=== PATIENT | male | born 1975 | race Two or more races ===

== ENCOUNTER 2020-08-24 10:08 | Outpatient (REF) | payer OTHER, SELFPAY | END 2020-08-24 10:09 | disposition home or self-care (01) | LOC: HO.LAB 10:08 | PROVIDERS: PCP Internal Medicine; Visit Provider Internal Medicine | DX: Z20.828 Contact with and (suspected) exposure to other viral communicable diseases (principal) | CPT/HCPCS: C9803; U0003 ==

== ENCOUNTER 2020-09-10 16:21 | Outpatient (REF) | payer OTHER, SELFPAY | END 2020-09-10 16:22 | disposition home or self-care (01) | LOC: HO.LAB 16:21 | PROVIDERS: PCP Internal Medicine; Visit Provider Internal Medicine | DX: Z20.822 Contact with and (suspected) exposure to COVID-19 (principal) | CPT/HCPCS: 36415; C9803; U0003 ==

== ENCOUNTER 2020-09-21 10:21 | Outpatient (REF) | payer OTHER, SELFPAY | END 2020-09-21 10:22 | disposition home or self-care (01) | LOC: HO.LAB 10:21 | PROVIDERS: Visit Provider Internal Medicine | DX: Z20.822 Contact with and (suspected) exposure to COVID-19 (principal) | CPT/HCPCS: 36415; C9803; U0003 ==

== ENCOUNTER 2021-01-06 20:22 | Emergency (ER) | payer OTHER, SELFPAY ==
[2021-01-06 20:40] VITALS: BP 135/91; BP 190/130; PULSE 121; PULSE 132; RESP 16; TEMP 37.1; O2SAT 96; O2SAT 98; BMI 34.8
--- NOTE | 2021-01-06 21:22 | MHC.RECOVSUP ---
? Reason for consult support o Current location: ED11 o Identified substance use concern: Heroin - Overdose - Support ? Intervention: o Community resources provided o Harm reduction discussion ? Plan: o Patient to follow up with HF after discharge ? Additional information: Patient looking for support.. I supplied Patient with [facility] Information... Stated he will be there tomorrow
--- NOTE | 2021-01-06 21:44 | ED_ITS ---
HPI - General Adult General Chief complaint: General Medical Stated complaint: HIGH BLOOD PRESSURE Time Seen by Provider: 01/06/21 21:13 Source: patient Mode of arrival: ambulatory History of Present Illness HPI narrative: 45-year-old male who is brought in via EMS after they were called by his spouse after an argument at which time the spouse states that the patient was acting agitated. Patient states that he was told his blood pressure was very high and that he needed to come in to be further evaluated and agreed at that time. Currently, patient does not wish to stay he has an appointment for add care who should be calling him tomorrow and denies any recent alcohol or drug use. He denies any headache, dizziness, blurry vision, shortness of breath, chest pain/palpitations, GI symptoms, or symptoms. When it was explained to him the plan for labs and urine he is declining at this time as well as declining any suicidal or homicidal ideation and also denies hearing voices. Related Data Allergies Allergy/AdvReac Type Severity Reaction Status Date / Time No Known Allergies Allergy Verified 01/06/21 20:49 Review of Systems Review of Systems: Pertinent positives and negatives as stated in HPI 10 point review of systems otherwise negative. PMFSH Past Medical History Source: nursing notes reviewed Medical History Hypertension Substance abuse Social History Social History Advance Directives: No Advance Directives Information Provided: Yes Physical Exam Vital Signs: Vital Signs: Last Vital Signs Temp 98.7 F 01/06/21 20:40 Pulse 121 H 01/06/21 20:40 Resp 16 01/06/21 20:40 BP 135/91 H 01/06/21 20:40 Pulse Ox 96 01/06/21 20:40 Body Mass Index 34.8 VITAL SIGNS: Reviewed. GENERAL: Well developed, well nourished, in no acute distress. HEAD: Normocephalic/atraumatic EYES: PERRLA, EOMI intact without pain, no nystagmus EARS: Ext canals without abnormality NOSE: Nares patent bilateral OROPHARYNX: no oral lesions noted, posterior pharynx clear NECK: Supple, no adenopathy LUNGS: Normal breath sounds. No adventitious sounds or accessory muscle use. SpO2<96> CARDIOVASCULAR: Regular rate and rhythm without noted murmurs ABDOMEN: Soft, non-tender, non-distended with bowel sounds. NEUROLOGIC: Alert and oriented x 4. Course Course Course Narrative: 45-year-old male with history and clinical presentation consistent with asymptomatic hypertension with known underlying high blood pressure but denies taking any medications for this condition. In addition, patient appears to be an command of full faculties but is clearly agitated with significant other. The refinery operator light ends recovery spoke with the patient and the plan is that he will follow up with [facility] when they call him tomorrow. Patient is asking to sign out against medical advice and all the risks and benefits were discussed with him at bedside. He was offered a director river restoration but he declined. Discharge Plan Discharge Clinical Impression: Hypertension Patient Disposition: Left Against Medical Advice Instructions: DASH Eating Plan (ED), Hypertension (ED) Additional Instructions: Return to the emergency room for any acute worsening of your symptoms or if we can offer any other assistance and your attempts to enter detox. Referrals: Tod La MD [Primary Care Provider] - 2 days Stand Alone Forms: Against Medical Advice
== END 2021-01-06 22:00 | disposition left against medical advice (07) ==
PROVIDERS: Emergency Provider Student in an Organized Health Care Education/Training Program; PCP Internal Medicine
DX: I10 Essential (primary) hypertension (principal); R45.1 Restlessness and agitation; F11.10 Opioid abuse, uncomplicated; F17.200 Nicotine dependence, unspecified, uncomplicated
CPT/HCPCS: 99282; 99283

== ENCOUNTER 2021-01-07 00:53 | Emergency (ER) | payer OTHER, SELFPAY ==
[2021-01-07 00:59] VITALS: BP 138/89; BP 140/90; PULSE 122; RESP 20; TEMP 37.3; O2SAT 97; BMI 33.5
[2021-01-07 02:04] VITALS: BP 112/60; PULSE 97; RESP 16; O2SAT 95
--- NOTE | 2021-01-07 02:28 | ED_ITS ---
HPI - Overdose General Chief Complaint: Overdose Stated Complaint: od Time Seen by Provider: 01/07/21 02:28 Source: patient Mode of arrival: EMS History of Present Illness HPI Narrative: 45-year-old male who was seen earlier in the day now is brought in by EMS for accidental overdose of heroin, he states he used 2 bags. And states he has been continuing to argue with his but denies any suicidal or homicidal ideation or AVH. He is scheduled to hear back from [facility] today for detox and has no other acute complaints. Related Data Allergies Allergy/AdvReac Type Severity Reaction Status Date / Time No Known Allergies Allergy Verified 01/07/21 01:08 Review of Systems Review of Systems: Pertinent positives and negatives as stated in HPI 10 point review of systems is otherwise negative. PMFSH Past Medical History Source: nursing notes reviewed Medical History Hypertension Substance abuse Social History Social History Advance Directives: No Advance Directives Information Provided: No Physical Exam Vital Signs: Vital Signs: Last Vital Signs Temp 99.1 F 01/07/21 00:59 Pulse 122 H 01/07/21 00:59 Resp 20 01/07/21 00:59 BP 138/89 01/07/21 00:59 Pulse Ox 97 01/07/21 00:59 Body Mass Index 33.5 VITAL SIGNS: Reviewed. GENERAL: Well developed, well nourished, in no acute distress. HEAD: Normocephalic/atraumatic EYES: PERRLA, EOMI OROPHARYNX: no oral lesions noted, posterior pharynx clear NECK: Supple, no adenopathy LUNGS: Normal breath sounds. No adventitious sounds or accessory muscle use. SpO2<97> CARDIOVASCULAR: Regular rate and rhythm without noted murmurs ABDOMEN: Soft, non-tender, non-distended with bowel sounds. NEUROLOGIC: Alert and oriented x 4. Course Course Course Narrative: 45-year-old male with history and clinical presentation consistent with accidental overdose and received Narcan. Patient is awake and tolerating oral intake without difficulty and is otherwise stable for discharge. Patient has plan to follow with [facility] in the morning. Discharge Plan Discharge Clinical Impression: Overdose Patient Disposition: Home, Self-Care Instructions: Adult Overdose (ED) Additional Instructions: Return to the emergency department for any acute worsening of symptoms. Referrals: Physician,Unknown [Primary Care Provider] - 2 days Print Language: Romansh
[2021-01-07 04:00] VITALS: BP 107/48; PULSE 94; RESP 16; O2SAT 96
[2021-01-07] MEDS: Naloxone HCl Nasal TAKE HOME 4 MG SPRAY NOSTRILALT (04:04)
--- NOTE | 2021-01-07 04:04 | PC.NURSE ---
Narcan ordered to be taken home with patient. Narcan not actually administered while in ED.
== END 2021-01-07 04:19 | disposition home or self-care (01) ==
PROVIDERS: Emergency Provider Student in an Organized Health Care Education/Training Program
DX: T40.1X1A Poisoning by heroin, accidental (unintentional), initial encounter (principal); Y92.9 Unspecified place or not applicable; F11.10 Opioid abuse, uncomplicated; Z71.51 Drug abuse counseling and surveillance of drug abuser
CPT/HCPCS: 99284

== ENCOUNTER 2021-01-09 21:00 | Emergency (ER) | payer OTHER, SELFPAY ==
[2021-01-09 21:12] VITALS: BP 126/89; PULSE 120; RESP 18; TEMP 37; O2SAT 100; BMI 37.1
--- NOTE | 2021-01-09 22:08 | ED_ITS ---
HPI - Overdose General Chief Complaint: ETOH/Substance Use Stated Complaint: OD Time Seen by Provider: 01/09/21 21:06 Source: patient and EMS Mode of arrival: EMS Limitations: no limitations History of Present Illness HPI Narrative: Patient comes emergency room for heroin overdose. Earlier this afternoon, patient used 2 bags of heroin. Patient was at home, his found him unconscious, called EMS. By the time EMS arrived, the patient woke up by himself, no Narcan was given. Patient is awake and alert, states he does not remember exactly what happened, states it was an accident, denies suicidal or homicidal ideation. Otherwise feels well. Denies chest pain or shortness of breath. complaint: accidental overdose Related Data Allergies Allergy/AdvReac Type Severity Reaction Status Date / Time No Known Allergies Allergy Verified 01/07/21 01:08 Review of Systems Review of Systems: Constitutional : No Weight loss, No Fever, No Chills, No Night Sweats, No Fatigue, No Malaise ENT/Mouth : No Hearing loss, No Ear Pain, No Nasal Congestion, No Sinus Pain, No Hoarseness, No sore throat, No Rhinorrhea, No Swallowing Difficulty Eyes: No Eye Pain, No Swelling, No Redness, No Foreign Body, No Discharge, No Vision Changes Cardiovascular : No Chest Pain, No SOB, No Dyspnea on Exertion, No Orthopnea, No Edema, No Palpitations Respiratory : No Cough, No Sputum, No Wheezing, No Smoke Exposure, No Dyspnea Gastrointestinal : No Nausea, No Vomiting, No Diarrhea, No Constipation, No abdominal Pain, No Hematochezia, No Melena Genitourinary : no irregular bleeding, No Dysuria, No Urinary Frequency, No Hematuria, No Urinary Incontinence, No Urgency, No Flank Pain, No Urinary Flow Changes, No Hesitancy Musculoskeletal : No joint pain, No Myalgias, No Joint Swelling Skin : No Skin Lesions, No rash Neuro : No Weakness, No Numbness, No Paresthesias, No Loss of Consciousness, No Dizziness, No Headache Psych : No Anxiety/Panic, No Depression, No SI/HI/AH/VH, accidental overdose Heme/Lymph: No Bruising, No Bleeding,No Lymphadenopathy Endocrine : No Polyuria, No Polydipsia, No Temperature Intolerance PMF Past Medical History Medical History Hypertension Substance abuse Social History Social History Advance Directives: No Advance Directives Information Provided: Yes Physical Exam Vital Signs: Vital Signs: Last Vital Signs Temp 98.6 F 01/09/21 21:12 Pulse 120 H 01/09/21 21:12 Resp 18 01/09/21 21:12 BP 126/89 01/09/21 21:12 Pulse Ox 100 01/09/21 21:12 Body Mass Index 37.1 Appearance: Alert. Oriented X3. No acute distress. Eyes: Pupils equal, round and reactive to light. ENT: Pharynx normal. Neck: Normal inspection. Neck supple. No lymph nodes noted. No crepitus CVS: Normal heart rate and rhythm. Pulses normal. Normal S1 and S2 Respiratory: No respiratory distress. Breath sounds normal. No Wheezing. No ra les Abdomen: Soft and nontender. No rigidity. No distention. good BS x4 Skin: Skin warm and dry. Normal skin color. Normal skin turgor. Extremities: No lower extremity edema. No lower extremity edema. No Lacerations. No Rash Neuro: Oriented X 3. No motor deficit. No sensory deficit. Moving all extermities. No slurred speech. Course Course Course Narrative: Patient has been in the emergency for over an hour, awake, alert, calm a comparative. Oxygen saturation 100% on room air. Patient feeling well, ambulatory with steady gait, tolerating p.o. Patient was provided with home Narcan Discharge Plan Discharge Clinical Impression: Accidental overdose Qualifiers: Encounter type: initial encounter Qualified Code(s): T50.901A - Poisoning by unspecified drugs, medicaments and biological substances, accidental (unintentional), initial encounter Patient Disposition: Home, Self-Care Instructions: Adult Overdose (ED) Additional Instructions: Please stop using drugs. Please follow-up with your primary care physician tomorrow. If you have any worsening or new symptoms, please return to the emergency room or call 911
[2021-01-09] MEDS: Naloxone HCl Nasal TAKE HOME 4 MG SPRAY NOSTRILALT (22:17)
== END 2021-01-09 22:18 | disposition home or self-care (01) ==
PROVIDERS: Emergency Provider Emergency Medicine
DX: T40.1X1A Poisoning by heroin, accidental (unintentional), initial encounter (principal); Y92.9 Unspecified place or not applicable; F11.10 Opioid abuse, uncomplicated; Z71.51 Drug abuse counseling and surveillance of drug abuser
CPT/HCPCS: 99283

== ENCOUNTER 2021-01-10 01:24 | Emergency (ER) | payer OTHER, SELFPAY ==
[2021-01-10 01:28] VITALS: PULSE 130; RESP 20; TEMP 37.2; O2SAT 96; BMI 31.5
[2021-01-10 01:40] VITALS: BP 121/77; PULSE 125; RESP 18; TEMP 37.2; O2SAT 97
--- NOTE | 2021-01-10 02:11 | ED_ITS ---
HPI - Overdose General Chief Complaint: ETOH/Substance Use Stated Complaint: Overdose Time Seen by Provider: 01/10/21 02:10 Source: patient Mode of arrival: EMS History of Present Illness HPI Narrative: 45-year-old male states that he went home after being discharged from here got into a ?huge argument with his ? which he states caused him to snort more heroin. His called his daughter who then called EMS who came and picked him up, he did not receive Narcan in route. At this time, patient denies any other complaints such as shortness of breath or chest pain/palpitations. Related Data Allergies Allergy/AdvReac Type Severity Reaction Status Date / Time No Known Allergies Allergy Verified 01/07/21 01:08 Review of Systems Review of Systems: Pertinent positives and negatives as stated in HPI 10 point review of systems is otherwise negative. PMFSH Past Medical History Source: nursing notes reviewed Medical History Hypertension Substance abuse Social History Social History Alcohol intake: current Alcohol intake frequency: 3 or more drinks per day Smoking Status: Current every day smoker Smoked in Last 30 Days: Yes Use of substances other than those prescribed or required for medical reasons: Yes Substance Use Type: Heroin and Opiates Advance Directives: No Advance Directives Information Provided: No Physical Exam Vital Signs: Vital Signs: Last Vital Signs Temp 99.0 F 01/10/21 01:40 Pulse 100 01/10/21 04:00 Resp 16 01/10/21 04:00 BP 121/77 01/10/21 01:40 Pulse Ox 96 01/10/21 04:00 Body Mass Index 31.5 VITAL SIGNS: Reviewed. GENERAL: Well developed, well nourished, in no acute distress. HEAD: Normocephalic/atraumatic EYES: PERRLA, EOMI OROPHARYNX: no oral lesions noted, posterior pharynx clear NECK: Supple, no adenopathy LUNGS: Normal breath sounds. No adventitious sounds or accessory muscle use. SpO2<97> CARDIOVASCULAR: Regular rate and rhythm without noted murmurs ABDOMEN: Soft, non-tender, non-distended with bowel sounds. NEUROLOGIC: Alert and oriented x 4. Course Course Course Narrative: 45-year-old male with history and clinical presentation consistent with significant social stressors regarding his substance dependence between he and has . Patient states that he has an intake appointment today, Sunday, for detox. Patient stable for discharge to home with instructions to continue [facility] with [facility]. Patient tolerating oral intake and is observed to have a steady gait. Who be discharged in stable condition to home and to follow up with his detox program. Reevaluation(s) Reevaluation #1: Patient placed in physician observation because the patient needed more time to sober. At the time observation was started the patient's vital signs were stable, patient is alert and oriented, neuro: Nonfocal, CV RRR, lungs clear Time: 04:15 Reevaluation #2: Physician observation ended. Patient discharged and the plan is to follow-up with detox this morning. NAD, lungs clear, CV RRR, abdominal nontender, neuro intact. Disposition is for home Time: 05:50 Discharge Plan Discharge Clinical Impression: Substance abuse or dependence Patient Disposition: Home, Self-Care Instructions: Polysubstance Abuse (ED) Additional Instructions: Return to the emergency room for any acute worsening of symptoms. Referrals: Physician,Unknown [Primary Care Provider] - 2 days
[2021-01-10 04:00] VITALS: PULSE 100; RESP 16; O2SAT 96
[2021-01-10 04:03] VITALS: PULSE 100
--- NOTE | 2021-01-10 05:39 | PC.NURSE ---
PATIENT IS ALERT AND OREINTED, AMBULATING TO RESTROOM STEADILY WITH NO DISTRESS NOTED. PLAN OF CARE FOR DISCHARGE HOME.
== END 2021-01-10 06:11 | disposition home or self-care (01) ==
PROVIDERS: Emergency Provider Student in an Organized Health Care Education/Training Program
DX: T40.1X4A Poisoning by heroin, undetermined, initial encounter (principal); T40.1X1A Poisoning by heroin, accidental (unintentional), initial encounter; F11.10 Opioid abuse, uncomplicated; Y92.9 Unspecified place or not applicable; F17.200 Nicotine dependence, unspecified, uncomplicated; Z71.6 Tobacco abuse counseling; Z71.51 Drug abuse counseling and surveillance of drug abuser
CPT/HCPCS: 99285

== ENCOUNTER 2021-01-15 17:55 | Emergency (ER) | payer OTHER, SELFPAY ==
[2021-01-15 18:09] VITALS: BP 132/74; BP 139/81; PULSE 124; PULSE 72; RESP 16; TEMP 36.6; O2SAT 97; BMI 33.5
--- NOTE | 2021-01-15 18:20 | ED.OVERDOSE ---
HPI - Overdose General Chief Complaint: ETOH/Substance Use Stated Complaint: overdose Time Seen by Provider: 01/15/21 18:20 Source: patient and EMS Mode of arrival: EMS Limitations: no limitations History of Present Illness HPI Narrative: 45-year-old male came in for evaluation for heroin overdose. 45-year-old male found by bystander in his car unresponsive, patient needed 2 mg of intranasal Narcan by EMS, patient stated that he used only 1 bag of heroin by sniffing, patient declined any intention self-harm or others harm, no hallucination. Patient now is awake and alert in the emergency department. Related Data Allergies Allergy/AdvReac Type Severity Reaction Status Date / Time No Known Allergies Allergy Verified 01/07/21 01:08 Review of Systems Review of Systems: All other systems are reviewed and are negative Constitutional: Reports as per HPI and Reports no additional constitutional complaints Eyes: Reports as per HPI and Reports no additional eye complaints Reports system reviewed and no additional complaints, except as documented Cardiovascular: Reports as per HPI and Reports no additional cardiovascular complaints Respiratory: Reports as per HPI and Reports no additional respiratory complaints Gastrointestinal: Reports as per HPI and Reports no additional gastrointestinal complaints Genitourinary: Reports no additional female genitourinary complaints Musculoskeletal: Reports no additional musculoskeletal complaints Skin/Breast: Reports system reviewed and no additional complaints, except as docu Psychiatric: Reports no additional psychiatric complaints Endocrine: Reports no additional endocrine complaints Hematologic/Lymphatic: Reports no additional hematologic/lymphatic complaints Allergic/Immunologic: Reports no additional allergic/immunologic complaints Reports system reviewed and no additional complaints, except as documented and Reports Abnormal speech present [facility] Past Medical History Medical History Hypertension Substance abuse Social History Social History Alcohol intake: current Alcohol intake frequency: 3 or more drinks per day Smoking Status: Current every day smoker Substance Use Type: Heroin and Opiates Advance Directives: No Advance Directives Information Provided: No Physical Exam Vital Signs: Vital Signs: Last Vital Signs Temp 97.9 F 01/15/21 18:09 Pulse 124 H 01/15/21 18:09 Resp 16 01/15/21 18:09 BP 139/81 01/15/21 18:09 Pulse Ox 97 01/15/21 18:09 Body Mass Index 33.5 Vital signs have been reviewed as appeared to be correct. Blood pressure normal. Heart rate elevated. Respiration rate normal. Temperature normal. Oxygen saturation normal. Appearance: Alert. Oriented X3. No acute distress. Head: Normal external exam. Normocephalic. Atraumatic. No Loya signs noted. No raccoon eyes noted Eyes: PERRLA. EOMI. Conjunctiva and sclera normal. Eyelids normal. ENT: TM's Normal. Pharynx normal. Uvula midline. Moist mucous membranes. No trismus noted. No drooling noted. No muffled voice noted. Neck: Normal inspection. Neck supple. FROM. No adenopathy. Thyroid Normal. No meningeal signs. No neck mass noted. CVS: Normal heart rate and rhythm. Heart sound normal. No murmurs noted. Pulses normal throughout. Respiratory: No respiratory distress. Painless inspiration. Breath sounds normal. No wheezes/rales/rhonchi noted. Chest nontender. No accessory muscle usage noted or decreased air movement noted. Abdomen: Soft and nontender. Bowel sounds normal in all 4 quadrants. No distention noted. No organomegaly noted. No visible injury noted. Back: No CVA tenderness. Full range of motion noted. Skin: Skin warm and dry. Normal skin color. Normal skin turgor. No rashes/lesions/lacerations noted. Extremities: No lower extremity edema. Extremities exhibit normal range of motion. Extremities nontender. Neuro: Oriented X 3. No motor deficit. No sensory deficit. Reflexes normal. Course Course Course Narrative: 45-year-old male require Narcan after using 1 bag of heroin, patient remained in the emergency department awake, alert, oriented with stable vital signs. Patient overall regretted what happened today and he will not use drugs in the future, patient is new to the hospital months. Discharge Plan Discharge Clinical Impression: Accidental heroin overdose Qualifiers: Encounter type: initial encounter Qualified Code(s): T40.1X1A - Poisoning by heroin, accidental (unintentional), initial encounter Patient Disposition: Home, Self-Care Instructions: Narcotic Use Disorder (ED) Referrals: Tod La MD [Primary Care Provider] - 2 days
[2021-01-15 20:25] VITALS: BP 128/64; PULSE 92; RESP 18; O2SAT 98
== END 2021-01-15 20:25 | disposition home or self-care (01) ==
PROVIDERS: Emergency Provider Emergency Medicine; PCP Internal Medicine
DX: F11.10 Opioid abuse, uncomplicated (principal); T40.1X1A Poisoning by heroin, accidental (unintentional), initial encounter; R40.4 Transient alteration of awareness; Y92.810 Car as the place of occurrence of the external cause; I10 Essential (primary) hypertension
CPT/HCPCS: 99284

== ENCOUNTER 2021-01-16 13:16 | Emergency (ER) | payer OTHER, SELFPAY ==
[2021-01-16 13:18] VITALS: BP 114/84; PULSE 112; RESP 19; TEMP 37.2; O2SAT 97; BMI 33.5
== END 2021-01-16 15:05 | disposition left against medical advice (07) ==
PROVIDERS: Emergency Provider Emergency Medicine; PCP Internal Medicine
DX: R11.10 Vomiting, unspecified (principal); R19.7 Diarrhea, unspecified
CPT/HCPCS: 99282

== ENCOUNTER 2021-04-22 12:22 | Outpatient (REF) | payer OTHER, SELFPAY ==
[2021-04-22 13:22] LABS: MANUAL DIFF FLAG NO
[2021-04-22 13:27] LABS: Basophils Percent Auto 0.4 % (0-2); Eosinophils Percent Auto 0.6 % (0-4); Hematocrit 43.2 % (42-52); Hemoglobin 14.1 g/dl (14.0-18.0); Imm Gran Abs Auto 0.02 X10*3/uL (0.00-0.03); Imm Gran Pct Auto 0.3 % (0.0-0.4); Lymphocytes Absolute Auto 1.3 X10*3/uL (1.2-4.9); Lymphocytes Percent Auto 18.4 % (20-40); Mean Corpuscular HGB Conc 32.6 g/dl (31.0-36.0); Mean Corpuscular Hemoglobin 30.1 pg (27.0-33.0); Mean Corpuscular Volume 92.1 fL (80-98); Mean Platelet Volume 11.5 fL (9.4-12.4); Monocytes Absolute Auto 0.5 X10*3/uL (0.1-1.2); Monocytes Percent Auto 7.7 % (2-11); Neutrophils Percent Auto 72.6 % (45-73); Platelet Count 242 X10*3/uL (160-400); Red Blood Count 4.69 X10*6/uL (4.60-5.80); Red Cell Distribution Width 13.9 % (11.0-16.0); White Blood Count 6.9 X10*3/uL (4.8-10.8)
[2021-04-22 13:42] LABS: Estimated Average Glucose 105 mg/dL; Hemoglobin A1c % 5.3 %
[2021-04-22 13:56] LABS: Alanine Aminotransferase 22 U/L (0-40); Albumin Level 4.5 g/dL (3.5-5.0); Alkaline Phosphatase 92 U/L (39-117); Anion Gap 13 (12-20); Aspartate Amino Transferase 23 U/L (5-37); Bilirubin Total 0.6 mg/dL (0.0-1.0); Blood Urea Nitrogen 9 mg/dL (9-16); Calcium 9.4 mg/dL (8.4-10.2); Carbon Dioxide 29 mmol/L (22-29); Chloride 102 mmol/L (96-108); Estimated Glomerular Filt Rate > 60; Glucose Random 139 mg/dL (60-115); Potassium 4.9 mmol/L (3.3-5.1); Sodium 139 mmol/L (135-145); Total Protein 7.3 g/dL (6.5-8.0)
[2021-04-22 14:17] LABS: Free T4 (Free Thyroxine) 0.83 ng/dL (0.71-1.85); Thyroid Stimulating Hormone 6.44 uIU/mL (0.32-4.0)
== END 2021-04-22 12:23 | disposition home or self-care (01) ==
LOC: HO.LAB 12:22
PROVIDERS: PCP Internal Medicine; Visit Provider Internal Medicine
DX: E03.9 Hypothyroidism, unspecified (principal); R73.03 Prediabetes; T14.8XXA Other injury of unspecified body region, initial encounter
CPT/HCPCS: 36415; 80053; 83036; 84439; 84443; 85025

== ENCOUNTER 2021-05-19 08:38 | Outpatient (REF) | payer OTHER, SELFPAY ==
--- NOTE | ~2021-05-19 | XR_ITS ---
EXAMINATION: XR ANKLE, RIGHT CLINICAL INFORMATION: Right ankle pain. History of fracture. COMPARISON: Prior radiographs, including 10/07/2019 and 03/10/2020. TECHNIQUE: AP, lateral, and mortise views of the right ankle. FINDINGS: The talar dome is well-positioned within the ankle mortise. No ankle joint effusion. No arthritic deformity at the ankle joint. The prior fracture of the distal fibular diaphysis is healed. The lateral fibular fixation plate and screws are intact. No osteolysis around the hardware. The endobuttons for the tightrope syndesmosis fixation are in normal position. There is chronic posttraumatic ossification along the region of the distal tibiofibular interosseous membrane. There are enthesophytes of the posterior and plantar surfaces of the calcaneus. Soft tissue swelling around the ankle has markedly improved/resolved compared to 03/10/2020. XR/XR ankle RT min 3V IMPRESSION: * Old, healed fracture of the distal fibular diaphysis. * No loosening of the fibular fixation hardware. * No new abnormalities at the ankle compared to 03/10/2020.
== END 2021-05-19 08:39 | disposition home or self-care (01) ==
LOC: HO.XRAY 08:38
PROVIDERS: PCP Internal Medicine; Visit Provider Internal Medicine
DX: M25.571 Pain in right ankle and joints of right foot (principal)
CPT/HCPCS: 73610

== ENCOUNTER 2022-05-23 08:01 | Outpatient (REF) | payer OTHER, SELFPAY ==
[2022-05-23 08:16] LABS: MANUAL DIFF FLAG NO
[2022-05-23 08:41] LABS: Basophils Percent Auto 0.5 % (0-2); Eosinophils Absolute Auto 0.1 X10*3/uL (0.0-0.4); Eosinophils Percent Auto 1.7 % (0-4); Hematocrit 44.6 % (42.0-52.0); Hemoglobin 14.8 g/dl (14.0-18.0); Imm Gran Abs Auto 0.02 X10*3/uL (0.00-0.03); Imm Gran Pct Auto 0.3 % (0.0-0.4); Lymphocytes Absolute Auto 1.3 X10*3/uL (1.2-4.9); Mean Corpuscular HGB Conc 33.2 g/dl (31.0-36.0); Mean Corpuscular Hemoglobin 30.3 pg (27.0-33.0); Mean Corpuscular Volume 91.4 fL (80.0-98.0); Mean Platelet Volume 11.9 fL (9.4-12.4); Monocytes Absolute Auto 0.5 X10*3/uL (0.1-1.2); Monocytes Percent Auto 7.9 % (2-11); Neutrophils Absolute Auto 4.1 x10*3/uL (2.0-8.3); Neutrophils Percent Auto 67.6 % (45-73); Platelet Count 150 X10*3/uL (160-400); Red Blood Count 4.88 X10*6/uL (4.60-5.80); Red Cell Distribution Width 12.8 % (11.0-16.0)
[2022-05-23 08:57] LABS: Estimated Average Glucose 103 mg/dL; Hemoglobin A1c % 5.2 %
[2022-05-23 09:10] LABS: Alanine Aminotransferase 10 U/L (0-40); Albumin Level 4.4 g/dL (3.5-5.0); Alkaline Phosphatase 76 U/L (39-117); Anion Gap 13 (12-20); Aspartate Amino Transferase 14 U/L (5-37); Bilirubin Total 0.5 mg/dL (0.0-1.0); Blood Urea Nitrogen 9 mg/dL (9-16); Calcium 9.3 mg/dL (8.4-10.2); Carbon Dioxide 29 mmol/L (22-29); Chloride 105 mmol/L (96-108); Cholesterol 199 mg/dL; Estimated Glomerular Filt Rate > 60; Glucose Random 110 mg/dL (60-115); HDL Cholesterol 44 mg/dL; LDL Cholesterol Calculated 129 mg/dl; Potassium 4.4 mmol/L (3.3-5.1); Sodium 143 mmol/L (135-145); Triglycerides 134 mg/dL
[2022-05-23 09:31] LABS: Free T4 (Free Thyroxine) 0.73 ng/dL (0.71-1.85); Thyroid Stimulating Hormone 7.17 uIU/mL (0.32-4.0)
== END 2022-05-23 08:02 | disposition home or self-care (01) ==
LOC: HO.LAB 08:01
PROVIDERS: PCP Internal Medicine; Visit Provider Internal Medicine
DX: E03.9 Hypothyroidism, unspecified (principal); R73.03 Prediabetes
CPT/HCPCS: 36415; 80053; 80061; 83036; 84439; 84443; 85025

== ENCOUNTER 2023-10-05 22:54 | Emergency (ER) | payer OTHER, SELFPAY ==
--- NOTE | ~2023-10-05 | XR_ITS ---
EXAMINATION: XR LUMBOSACRAL SPINE CLINICAL INFORMATION: Fall. COMPARISON: Radiograph lumbar spine 10/29/2018. TECHNIQUE: Three views of the lumbosacral spine. FINDINGS: Trace retrolisthesis of L5 on S1, significantly changed. Vertebral body heights are preserved. Intervertebral disc spaces are maintained. Normal appearance of the posterior elements. Symmetric SI joints. No significant paraspinal soft tissue abnormality. XR/XR lumbar spine 2-3V IMPRESSION: 1. Trace retrolisthesis of L5 on S1, unchanged. 2. No acute fractures or malalignment.
[2023-10-05 22:59] VITALS: BP 136/86; PULSE 83; O2SAT 99
[2023-10-05 23:05] VITALS: BP 116/76; PULSE 87; RESP 16; TEMP 36.9; O2SAT 99; BMI 31.8
[2023-10-05 23:53] VITALS: BP 119/78; PULSE 82; RESP 18; TEMP 36.7; O2SAT 97
[2023-10-06] MEDS: Acetaminophen 325 MG TABLET 975 MG PO (00:09)
[2023-10-06] MEDS: Cyclobenzaprine HCl 10 MG TABLET PO (00:09)
[2023-10-06] MEDS: Morphine Sulfate Immed Release 15 MG TABLET PO (00:09)
--- NOTE | 2023-10-06 00:20 | ED.FALL ---
HPI - Fall General Chief Complaint: Fall Stated Complaint: Pain in lower back from fall off 2 stairs, swellin Time Seen by Provider: 10/05/23 23:12 Source: patient and family Mode of arrival: ambulatory Limitations: no limitations History of Present Illness HPI Narrative: 47 yo male with PMH of hypothyroidism not on thinners here with c/o R low back pain after falling down 2 steps at home and hitting low back - no b/b incontinence no saddle anesthesia no head injury or LOC. He is distal NV intact. MD complaint: fall Onset (ago): hour(s) (just [employer]) Fall from: standing Fall witnessed: yes, by family Place fall occurred: home Loss of consciousness: none Prolonged down time: no Symptoms prior to fall: none Context: tripped/slipped Location of injury: back Severity: moderate Quality: throbbing Associated symptoms (after fall): denies Related Data Previous Rx's Medication Instructions Recorded cyclobenzaprine 10 mg tablet 10 mg PO TID PRN muscle spasm #20 10/06/23 tabs lidocaine 5 % topical patch 1 patch topical DAILY #30 ea 10/06/23 Allergies Allergy/AdvReac Type Severity Reaction Status Date / Time No Known Allergies Allergy Verified 01/07/21 01:08 Review of Systems Review of Systems: Constitutional : No Weight loss, No Fever, No Chills, ENT/Mouth : No Hearing loss, No Ear Pain, No Nasal Congestion, No Sinus Pain, No Hoarseness, No sore throat, No Rhinorrhea, No Swallowing Difficulty Cardiovascular : No Chest Pain, No SOB Respiratory : No Cough, No Dyspnea Gastrointestinal : No Nausea, No Vomiting, No Diarrhea, No abdominal Pain, No Hematochezia, No Melena Genitourinary : No Dysuria, No Urinary Frequency, No Hematuria, No Urinary Incontinence, Musculoskeletal : positive back pain Skin : No Skin Lesions, No rash Neuro : No Weakness, No Numbness, No Paresthesias, no loss of bowel or bladder incontinence, no saddle anesthesia All other systems reviewed and are negative [facility] Past Medical History Attestation statement: The following information was validated with the patient. Source: old records reviewed Medical History Substance abuse Hypertension Social History Social History Alcohol intake: never Smoked in Last 30 Days: No Use of substances other than those prescribed or required for medical reasons: Yes Substance Use Type: Marijuana Advance Directives: No Advance Directives Information Provided: No Physical Exam Vital Signs: Vital Signs: Last Vital Signs Temp 98.1 F 10/05/23 23:53 Pulse 82 10/05/23 23:53 Resp 18 10/05/23 23:53 BP 119/78 10/05/23 23:53 Pulse Ox 97 10/05/23 23:53 O2 Del Method Room Air 10/05/23 23:53 BMI result Body Mass Index 31.8 Appearance: Alert. Oriented X3. No acute distress. Eyes: Pupils equal, round and reactive to light. ENT: Pharynx normal. Neck: Normal inspection. Neck supple. CVS: Normal heart rate and rhythm. Pulses normal. Respiratory: No respiratory distress. Breath sounds normal. Abdomen: Soft and nontender. Back: ttp along R lower paraspinal ttp no hematoma noted no rib ttp no midline ttp it is ttp along R quadratus lumborum Skin: Skin warm and dry. Normal skin color. Normal skin turgor. Extremities: No lower extremity edema. No calf ttp Neuro: Oriented X 3. No motor deficit. No sensory deficit. Course Course Course Narrative: given dose of morphine in ED patient did not disclose prior substance abuse isssues will hold off Rx has been on [employer] Medications Administered Discontinued Medications Generic Name Dose Route Start Last Admin Trade Name Freq PRN Reason Stop Dose Admin Acetaminophen 975 mg 10/05/23 23:56 10/06/23 00:09 Acetaminophen 325 Mg Tablet PO 10/05/23 23:57 975 mg ONCE ONE Administration Cyclobenzaprine HCl 10 mg 10/05/23 23:56 10/06/23 00:09 Cyclobenzaprine Hcl 10 Mg Tablet PO 10/05/23 23:57 10 mg ONCE ONE Administration Morphine Sulfate 15 mg 10/05/23 23:56 10/06/23 00:09 Morphine Sulfate Immed Release 15 Mg Tablet PO 10/05/23 23:57 15 mg ONCE ONE Administration Medical Decision Making Medical Decision Making MDM Narrative: 47 yo male with PMH of hypothyroidism not on thinners here s/p mechanical fall injuring R lower back no obvious hematoma distal NV intact will obtain xrays and UA - he has no head or neck trauma. Will treat pain and reassess. Differential Diagnosis Differential Diagnoses: The differential diagnosis associated with the presentation includes strain, sprain, contusion, fracture Admission/Observation Consideration of admission/observation: Escalation of care including admission/observation considered no fracture noted no cauda equina symptoms Lab Data MDM Lab Attestation statement: I reviewed the patient's lab results. no hematuria Labs: Lab Results 10/06/23 Range/Units 00:16 Urine Color Yellow Urine Appearance Clear Urine pH 5.5 (5.0-9.0) Ur Specific [place] >= 1.030 H (1.005-1.025) Urine Protein Trace (Neg-Trace) mg/dL Urine Glucose (UA) Negative (Negative) mg/dL Urine Ketones Trace (Negative) mg/dL Urine Blood Negative (Negative) Urine Nitrite Negative (Negative) Ur Leukocyte Esterase Negative (Negative) Independent Interpretation I performed an independent interpretation of an: Plain X-Ray (no fracture) Radiology Impression Discussion of test interpretation with radiology: I have reviewed the radiologist's reading. Independent Historian Clinical information obtained from an independent historian. History obtained from or confirmed by: Other External Record Review External record reviewed: Office record Prescription Management I considered prescription management with: Other Discharge Plan Discharge Clinical Impression: Back strain Qualifiers: Encounter type: initial encounter Qualified Code(s): S39.012A - Strain of muscle, fascia and tendon of lower back, initial encounter Patient Disposition: Home, Self-Care Instructions: Low Back Strain (ED) Additional Instructions: no blood in urine, no fracture on xray. return for weakness, numbness, loss of control of bowel or bladder or any other concerns. use muscle relaxers and lidocaine patches Prescriptions: New cyclobenzaprine 10 mg tablet 10 mg PO TID PRN (Reason: muscle spasm) Qty: 20 0RF lidocaine 5 % adhesive patch,medicated 1 patch topical DAILY Qty: 30 0RF Rx Instructions: leave on most painful area for up to 12 hrs Stand Alone Forms: Work/School Release
[2023-10-06 00:21] LABS: Appearance Urine Clear; Color Urine Yellow; Glucose Urine UA Negative (Negative); Leukocyte Esterase Urine Negative (Negative); Nitrite Urine Negative (Negative); PH 5.5 (5.0-9.0); Specific Gravity - Urine >= 1.030 (1.005-1.025); Urine Blood Negative (Negative); Urine Ketones Trace mg/dL (Negative); Urine Protein Trace mg/dL (Neg-Trace)
[2023-10-06 01:09] VITALS: BP 123/76; PULSE 94; RESP 16
[2023-10-06] MEDS: Lidocaine 4 % Patch ADH..PATCH 1 PATCH TRANSDERMA (01:25)
== END 2023-10-06 01:29 | disposition home or self-care (01) ==
PROVIDERS: Emergency Provider Emergency Medicine; PCP Internal Medicine
DX: S39.012A Strain of muscle, fascia and tendon of lower back, initial encounter (principal); W10.9XXA Fall (on) (from) unspecified stairs and steps, initial encounter; Y93.9 Activity, unspecified; Y92.9 Unspecified place or not applicable; Y99.8 Other external cause status
CPT/HCPCS: 72100; 81003; 99283; 99284

== ENCOUNTER 2023-10-09 14:24 | Outpatient (REF) | payer OTHER, SELFPAY ==
--- NOTE | ~2023-10-09 | XR_ITS ---
EXAMINATION: XR HIP, RIGH, WITH AP PELVIS CLINICAL INFORMATION: Pain. COMPARISON: None available. TECHNIQUE: AP and frog-leg lateral views of the right hip are submitted, together with a frontal view of the pelvis. FINDINGS: No fracture. Alignment is anatomic. The bilateral acetabular joint spaces are symmetric and well-maintained. The sacroiliac joints are symmetric. The pubic symphysis is intact. There are pelvic phleboliths. No foreign body is seen. XR/XR hip RT w [id number] IMPRESSION: Unremarkable bilateral hips.
--- NOTE | ~2023-10-09 | XR_ITS ---
EXAMINATION: XR RIBS, RIGHT, WITH PA CHEST CLINICAL INFORMATION: Pain. COMPARISON: None available. TECHNIQUE: 3 views of the right ribs were obtained, together with a PA view of the chest. FINDINGS: Lungs are clear. No consolidation, pneumothorax, or pleural effusion. The cardiomediastinal silhouette and pulmonary vasculature are normal. There is bilateral bronchiolar wall thickening. Osseous structures are unremarkable. Ribs are intact. No fractures are identified. XR/XR ribs RT min 3V w CXR1V IMPRESSION: 1. No focal infiltrate or congestive heart failure is seen. 2. There is bilateral bronchiolar wall thickening, which can be associated with acute bronchiolitis or reactive airways disease. 3. No right rib fracture is seen. There is no right pneumothorax or pleural effusion.
[2023-10-09 14:41] LABS: MANUAL DIFF FLAG NO
[2023-10-09 15:25] LABS: Basophils Percent Auto 0.6 % (0-2); Eosinophils Absolute Auto 0.1 X10*3/uL (0.0-0.4); Eosinophils Percent Auto 0.8 % (0-4); Hematocrit 42.2 % (42.0-52.0); Hemoglobin 13.9 g/dl (14.0-18.0); Imm Gran Abs Auto 0.03 X10*3/uL (0.00-0.03); Imm Gran Pct Auto 0.4 % (0.0-0.4); Lymphocytes Absolute Auto 1.6 X10*3/uL (1.2-4.9); Mean Corpuscular HGB Conc 32.9 g/dl (31.0-36.0); Mean Corpuscular Hemoglobin 30.2 pg (27.0-33.0); Mean Corpuscular Volume 91.5 fL (80.0-98.0); Mean Platelet Volume 11.5 fL (9.4-12.4); Monocytes Absolute Auto 0.4 X10*3/uL (0.1-1.2); Monocytes Percent Auto 5.7 % (2-11); Neutrophils Percent Auto 69.5 % (45-73); Platelet Count 183 X10*3/uL (160-400); Red Blood Count 4.61 X10*6/uL (4.60-5.80); White Blood Count 7.1 X10*3/uL (4.8-10.8)
[2023-10-09 16:06] LABS: Alanine Aminotransferase 8 U/L (0-40); Albumin Level 4.6 g/dL (3.5-5.0); Alkaline Phosphatase 73 U/L (39-117); Anion Gap 14 (12-20); Aspartate Amino Transferase 16 U/L (5-37); Bilirubin Total 0.6 mg/dL (0.0-1.0); Blood Urea Nitrogen 10 mg/dL (9-16); Calcium 9.4 mg/dL (8.4-10.2); Carbon Dioxide 30 mmol/L (22-29); Chloride 103 mmol/L (96-108); Estimated Glomerular Filt Rate > 60; Glucose Random 96 mg/dL (60-115); Sodium 143 mmol/L (135-145); Total Protein 7.4 g/dL (6.5-8.0)
[2023-10-09 16:23] LABS: T4 Thyroxine 5.5 ug/dL (4.5-12.0); Thyroid Stimulating Hormone 7.71 uIU/mL (0.32-4.0)
== END 2023-10-09 14:25 | disposition home or self-care (01) ==
LOC: HO.XRAY 14:24
PROVIDERS: PCP Internal Medicine; Visit Provider Internal Medicine
DX: J45.909 Unspecified asthma, uncomplicated (principal); R07.81 Pleurodynia; M25.551 Pain in right hip; E03.9 Hypothyroidism, unspecified; Z91.81 History of falling
CPT/HCPCS: 36415; 71101; 73502; 80053; 84436; 84443; 85025